=== PATIENT | female | born 1950 | race Caucasian/White ===

== ENCOUNTER → 2021-06-09 | Outpatient (CLI) | payer MEDICARE ==
[2021-05-05 15:00] VITALS: BP 149/71
[~2021-06-09] MED LIST: ASCO100T4 PO; CALC-534 PO; MULT-245 PO
--- NOTE | 2021-06-09 14:56 | RAD ---
EXAM: Dual modality PET-CT Scan DATE: 06/09/2021 RADIOPHARMACEUTICAL: 13 mCi F-18 fluorodeoxyglucose (FDG) IV. CLINICAL HISTORY: Pulmonary nodule. COMPARISON: Chest CT dated 05/03/2021 and abdomen and pelvis CT dated 04/26/2021. TECHNIQUE: Approximately 45 minutes after tracer administration, routine, attenuation-corrected Posit clay Emission Tomography (PET) images were obtained from the level of the base of the skull through th e level of the mid thighs. Tomographic reconstructions are reviewed in coronal, transaxial and sagitt al planes. Non-contrast CT imaging was performed for attenuation correction and localization purpose s only. These images do not constitute a diagnostic-quality CT examination and were not used to diag nose disease independently of the PET images. The blood glucose level was 95 mg/dL at the time of FDG administration. *One or more of the following individualized dose reduction techniques were utilized for this examina tion: 1. Automated exposure control. 2. Adjustment of the mA and/or kV according to patient size. 3. Use of iterative reconstruction technique. FINDINGS: There is mild radiotracer activity within SUV of 3.5 associated with a 1.7 cm nodule within the posterior right lung base. The SUV measurement is slightly less than the average SUV of 4.5 with in the adjacent liver parenchyma. No additional abnormal radiotracer activity is seen. The CT portion of the exam demonstrates a 1.7 cm pleural-based nodule at the right lung base, decreas ed compared to a measurement of 2.5 cm on the prior exam. There is a 4 mm pleural-based nodule within the lateral left lower lobe, stable in appearance. There is no pleural effusion or pneumothorax. The heart is normal in size. The previously demonstrated pulmonary emboli are not well assessed in the a bsence of intravenous contrast. No pathologically enlarged mediastinal or hilar lymph node is seen. T here is a small hiatal hernia. No hepatic lesion is seen. The gallbladder is absent. The pancreas, spleen, adrenal glands and right kidney are unremarkable. There is a small simple cyst within the left kidney. Follow-up is not routin ten performed for simple cysts. There is no appendicitis. There is no bowel obstruction. There is moderate colonic stool. There is di stal colonic diverticulosis. The bladder is nearly empty. The uterus is unremarkable. The adnexal reg ions are unremarkable. The aorta is normal in caliber. No mesenteric or retroperitoneal lymphadenopat hy is seen. There is multilevel degenerative change involving the spine. There are degenerative dow es involving the shoulders. The visualized portions the brain are unremarkable. There is no neck lymp hadenopathy. IMPRESSION: 1. Mildly radiotracer avid 1.7 cm posterior right basilar pleural-based nodule and an SUV of 3.5. Thi s tracer activity appears to be separate from adjacent tracer activity related to the liver. This deg ree of activity can be seen with low-grade neoplasm as well as infectious/inflammatory etiologies. Th is nodule appears to be decreased in size compared to the prior studies, allowing for differences in imaging technique, slice thickness, volume averaging and respiratory motion. This favors benignity. H owever, the lesion remains indeterminant. 2. No additional evidence of abnormal radiotracer activity. 3. Note is made that the pulmonary emboli demonstrated on the prior CT angiogram are not well charact erized on this exam due to the absence of intravenous contrast. 4. Please refer to the findings section of the report for additional findings regarding the non-PET p ortion of the exam. Electronically signed by: Shanice Harrison MD (06/09/2021 2:54 PM) [id number]
== END ==
LOC: PETSC 11:06
PROVIDERS: ATTEND Internal Medicine Critical Care Medicine
DX: R91.8 Other nonspecific abnormal finding of lung field (principal); N28.1 Cyst of kidney, acquired; K57.30 Diverticulosis of large intestine without perforation or abscess without bleeding; I26.99 Other pulmonary embolism without acute cor pulmonale
CPT/HCPCS: 78815; A9552

== ENCOUNTER → 2021-06-16 | Outpatient (CLI) | payer MEDICARE ==
[2021-05-05 15:00] VITALS: BP 149/71
[~2021-06-16] MED LIST changes: +CONTRAST GIVEN. MC PRN; +IOHEXOL 350 MG/ML 100 ML VIAL. IV ONE
--- NOTE | 2021-06-16 10:05 | RAD ---
CTA CHEST History: Follow-up pulmonary embolism. Comparison: CTA 05/03/2021. Technique: CTA of the pulmonary arteries with intravenous contrast. 3-D postprocessing was performed. Findings: Pulmonary arteries: No pulmonary embolism. Aorta and great vessels: No aneurysm or dissection of the aortic arch or thoracic aorta. Thyroid: Redemonstrated heterogeneous thyroid with small nodules not requiring follow-up. Mediastinum and ca: No mediastinal masses or adenopathy is seen. Esophagus: Small sliding hiatal hernia. Heart: The heart is normal in size. There is no pericardial effusion. Airways, Lungs, Pleura: The airways are patent. Mild posterior right upper lobe groundglass and retic ular changes similar to comparison. Mild right basilar atelectasis. No pleural effusion or pneumothor ax. Upper abdomen: Cholecystectomy. Osseous structures and soft tissues: Advanced degenerative changes of the right greater than left lui ulders with multiple right subcoracoid osteochondral bodies. Degenerative changes of the spine. Impression: 1. No pulmonary embolism, aortic aneurysm or aortic dissection. Resolution of previously seen multil obar pulmonary emboli. ------ Exposure: One or more of the following individualized dose reduction techniques were utilized for thi s examination: 1. Automated exposure control 2. Adjustment of the mA and/or kV according to patient size 3. Use of iterative reconstruction technique. Electronically signed by: Len Grewal MD (06/16/2021 10:02 AM) [id number]
== END ==
LOC: CT 09:09
PROVIDERS: ATTEND Internal Medicine Critical Care Medicine
DX: J98.11 Atelectasis (principal); I26.99 Other pulmonary embolism without acute cor pulmonale; K44.9 Diaphragmatic hernia without obstruction or gangrene; E04.2 Nontoxic multinodular goiter; M19.012 Primary osteoarthritis, left shoulder; M19.011 Primary osteoarthritis, right shoulder
CPT/HCPCS: 71275; Q9967